=== PATIENT | male | born 1995 | race Two or more races ===

== ENCOUNTER 2025-03-12 19:04 | Emergency (ER) | payer OTHER ==
[~2025-03-12] VITALS: Ht 182.9 cm; Wt 95.3 kg
[2025-03-12] MEDS ORDERED: LORAZEPAM INJ 2 MG/ML VIAL ONE ×2 (19:19→20:39)
[2025-03-12] MEDS: LORAZEPAM INJ 2 MG/ML VIAL IV ONE ×2 (19:29→20:45)
[2025-03-12] MEDS: IV NS 0.9% 1,000 ML BAG IV ONE ×2 (19:29→20:37)
[2025-03-12 21:27] LABS: BASOPHILS # (AUTO) 0.1 K/uL (0.0-0.2); BASOPHILS % (AUTO) 0.4 % (0.0-2.0); EOSINOPHILS % (AUTO) 0.2 % (0.0-6.0); HEMATOCRIT 46 % (39-51); HEMOGLOBIN 15.7 g/dL (13.5-17.5); LYMPHOCYTES # (AUTO) 1.7 K/uL (0.8-4.8); LYMPHOCYTES % (AUTO) 8.2 % (20.0-44.0); MEAN CORPUSCULAR HEMOGLOBIN 31 PG (26.0-33.0); MEAN CORPUSCULAR HGB CONC 35 g/dl (31.0-36.0); MEAN CORPUSCULAR VOLUME 89 fL (80-96); MONOCYTES # (AUTO) 1.5 K/uL (0.1-1.30); MONOCYTES % (AUTO) 7.1 % (2.0-12.0); NEUTROPHILS # (AUTO) 17.2 K/uL (1.8-8.9); NEUTROPHILS % (AUTO) 84.1 % (43.0-81.0); PLATELET COUNT (AUTO) 278 K/uL (150-450); RED CELL DISTRIBUTION WIDTH 12.8 % (11.5-15.0); WHITE BLOOD COUNT (AUTO) 20.5 K/uL (4.3-11.0)
[2025-03-12 21:35] LABS: CALCIUM, SERUM 8.5 mg/dL (8.5-10.1); CREATININE 1.2 mg/dL (0.6-1.3); POTASSIUM 3.3 mmol/L (3.5-5.1)
[2025-03-12 22:49] LABS: LYMPHOCYTES % (MANUAL) 11 % (16-48); NEUTROPHILS % (MANUAL) 85 (42-76)
[2025-03-12 22:50] LABS: MONOCYTES % (MANUAL) 4 % (0-11.0); PLATELET ESTIMATE ADEQUATE
[2025-03-13 04:23] VITALS: BP 137/109; TEMP 97.7; O2SAT 96
== END 2025-03-13 04:26 | disposition home or self-care (01) ==
LOC: ER 19:12
DX: R45.1 Restlessness and agitation (principal); T44.905A Adverse effect of unspecified drugs primarily affecting the autonomic nervous system, initial encounter; F41.9 Anxiety disorder, unspecified; Y92.89 Other specified places as the place of occurrence of the external cause; R00.0 Tachycardia, unspecified; Z60.2 Problems related to living alone
CPT/HCPCS: 99284; 96374; 96361; 93005; 96376; 85025; 80048; 82550; 36415; 82553; J2060 ×2; J7030